=== PATIENT | male | born 1965 | race African-American/Black ===

== ENCOUNTER 2018-05-07 15:45 | Emergency (ER) | payer OTHER ==
[~2018-05-07] VITALS: Ht 170.2 cm; Wt 68.5 kg
[2018-05-07 15:52] VITALS: Ht 170.2 cm; Wt 68.5 kg
[2018-05-07 16:56] LABS: CHLORIDE SERUM 102 mmol/L (98-107); CREATININE SERUM 1.2 mg/dL (0.7-1.3); GFR1 > 60 mL/min
[2018-05-07 16:57] LABS: CALCIUM 8.7 mg/dL (8.5-10.1); GLUCOSE SERUM 376 mg/dL (74-106); SODIUM SERUM 135 mmol/L (136-145)
[2018-05-07 17:39] VITALS: BP 150/101
== END 2018-05-07 17:45 | disposition home or self-care (01) ==
LOC: ED 15:45
PROVIDERS: Emergency Medicine
DX: E11.65 Type 2 diabetes mellitus with hyperglycemia (principal)
CPT/HCPCS: 82962